=== PATIENT | female | born 1935 | race Caucasian/White ===

== ENCOUNTER 2018-09-01 20:57 | Observation (INO) | payer OTHER, BC ==
--- NOTE | 2018-09-01 21:16 | PDOC ---
Rapid Medical Evaluation Medical Evaluation: 09/01/18 21:14 This patient had a brief in-person evaluation in triage CC:fever, headache and sorethroat since Thursday recent migrant into the country 08/19/18 PE: NAD unlabored breathing heart s1s2 orders: antipyretic, rapid strep This patient will proceed to the ED for further evaluation 09/01/18 21:15 Discharge Disposition - Diagnosis Fever - Referrals - Patient Instructions - Post Discharge Activity
[2018-09-01 21:35] VITALS: BMI 25.0
--- NOTE | 2018-09-01 22:52 | PDOC ---
Documentation entered by Shanice Tipton SCRIBE, acting as scribe for Rosemary Richardson DO. Rosemary Richardson DO: This documentation has been prepared by the Danuta gonzalez Adrianna, SCRIBE, under my direction and personally reviewed by me in its entirety. I confirm that the documentation accurately reflects all work, treatment, procedures, and medical decision making performed by me. History of Present Illness - General Chief Complaint: Syncope/Near Syncope Stated Complaint: SYNCOPE Time Seen by Provider: 09/01/18 22:22 - History of Present Illness Initial Comments: The patient is an 83 year old female, with a significant PMH of HTN, hypothyroid , and glaucoma, who presents to the ED BIBA for evaluation of syncope. Patient notes she was at the diner, when she suddenly felt warm, tired, and strange. Patients son notes she became lethargic, began to slump over, and became unresponsive. He notes this episode lasted for 3-4 minutes, followed by patient returning to baseline. He denies any head contusion, shaking, or incontinence during the episode. She denies any lightheadedness, dizziness, chest pain, SOB, palpitations, headache, blurry vision, changes in vision, dysuria, nausea, vomit , diarrhea prior to the episode, or while in the ED. Allergies: Brimonidine, hydrochlorothiazide, epinephrine, lisinopril Surgical History: Right breast mass removal, appendectomy Social History: Denies EtOH, tobacco, or illicit drug use PCP: NOS Past History - Past Medical History Allergies/Adverse Reactions: Allergies Allergy/AdvReac Type Severity Reaction Status Date / Time brimonidine [From Alphagan P] Allergy Verified 09/01/18 23:12 hydrochlorothiazide Allergy Verified 09/01/18 23:12 epinephrine AdvReac Verified 09/01/18 23:12 lisinopril AdvReac Cough Verified 09/01/18 23:12 Home Medications: Ambulatory Orders Latanoprost 0.005% Eye Drops [Xalatan 0.005% Eye Drops -] 1 drop HS 09/01/18 Levothyroxine [Synthroid -] 50 mcg PO AM 09/01/18 Olmesartan Medoxomil [Benicar (Nf)] 20 mg PO AM 09/01/18 Timolol 0.5% [Timoptic 0.5%] 1 drop OD AM 09/01/18 - Suicide/Smoking/Psychosocial Hx Smoking History: Never smoked Have you smoked in the past 12 months: No Information on smoking cessation initiated: No Hx Alcohol Use: No Drug/Substance Use Hx: No Review of Systems - Review of Systems Comments:: GENERAL/CONSTITUTIONAL: +S/p syncope. +Warm prior to episode. +Lethargic prior to episode. No fever or chills. No weakness. HEAD, EYES, EARS, NOSE AND THROAT: No change in vision. No ear pain or discharge. No sore throat. GASTROINTESTINAL: No nausea, vomiting, diarrhea or constipation. GENITOURINARY: No dysuria, frequency, or change in urination. CARDIOVASCULAR: No chest pain or shortness of breath. RESPIRATORY: No cough, wheezing, or hemoptysis. MUSCULOSKELETAL: No joint or muscle swelling or pain. No neck or back pain. SKIN: No rash NEUROLOGIC: No headache, vertigo, loss of consciousness, or change in strength/ sensation. ENDOCRINE: No increased thirst. No abnormal weight change. HEMATOLOGIC/LYMPHATIC: No anemia, easy bleeding, or history of blood clots. ALLERGIC/IMMUNOLOGIC: No hives or skin allergy. *Physical Exam - Vital Signs Last Vital Signs Temp Pulse Resp BP Pulse Ox 98.1 F 78 20 170/81 98 09/01/18 21:25 09/01/18 22:35 09/01/18 22:35 09/01/18 22:35 09/01/18 22:35 - Physical Exam Comments: Constitutional: Awake, alert, oriented. No acute distress. Head: Normocephalic. Atraumatic Eyes: PERRL. EOMI. Conjunctivae are not pale. ENT: Mucous membranes are moist and intact. Posterior pharynx without exudates or erythema. Uvula midline. Neck: Supple. Full ROM. No lymphadenopathy. Cardiovascular: Regular rate. Regular rhythm. S1, S2 regular. Distal pulses are 2+ and symmetric. Pulmonary/Chest: No evidence of respiratory distress. Clear to auscultation bilaterally No wheezing, rales or rhonchi. Abdominal: Soft and nondistended. There is no tenderness. No rebound, guarding or rigidity. No organomegaly. No palpable masses. Good bowel sounds. Back: No CVA tenderness. Musculoskeletal: No edema. No cyanosis. No clubbing. Full range of motion in all extremities. No calf tenderness. Radial/pedal pulses are intact and 2+ bilaterally Skin: Skin is warm and dry. No petechiae. No purpura. Neurological: Alert and oriented to person, place, and time. Cranial nerves II -XII are grossly intact. Normal speech. Strength is grossly symmetric. No sensory deficits. Psychiatric: Good eye contact. Normal interaction, affect and behavior. Heart Score/ECG Review - ECG Intrepretation Comment:: 09/01/18 22:52 sinus at 69 with 1st degree av block, nl axis, nl interval, no acute st/t wave findings ED Treatment Course - LABORATORY CBC & Chemistry Diagram: 09/01/18 22:50 09/01/18 22:50 - ADDITIONAL ORDERS Additional order review: Laboratory Results 09/01/18 09/01/18 09/01/18 23:35 22:50 22:50 PT with INR 12.40 INR 1.05 PTT (Actin FS) Sodium Potassium Chloride Carbon Dioxide Anion Gap BUN Creatinine Est GFR (CKD-EPI)AfAm Est GFR (CKD-EPI)NonAf Random Glucose Calcium Magnesium 1.9 Total Bilirubin AST ALT Alkaline Phosphatase Creatine Kinase Troponin I Total Protein Albumin Urine Color Yellow Urine Appearance Clear Urine pH 6.5 Ur Specific [place] 1.018 Urine Protein Trace Urine Glucose (UA) Negative Urine Ketones Negative Urine Blood Negative Urine Nitrite Negative Urine Bilirubin Negative Urine Urobilinogen 1.0 Ur Leukocyte Esterase Negative 09/01/18 09/01/18 09/01/18 22:50 22:50 22:50 PT with INR INR PTT (Actin FS) 25.4 Sodium 138 Potassium 4.0 Chloride 106 Carbon Dioxide 26 Anion Gap 6 L BUN 18.6 H Creatinine 1.0 Est GFR (CKD-EPI)AfAm 59.91 Est GFR (CKD-EPI)NonAf 51.69 Random Glucose 162 H Calcium 8.6 Magnesium Total Bilirubin 0.3 AST 18 ALT 25 Alkaline Phosphatase 96 Creatine Kinase 82 Troponin I < 0.02 Total Protein 6.6 Albumin 3.5 Urine Color Urine Appearance Urine pH Ur Specific [place] Urine Protein Urine Glucose (UA) Urine Ketones Urine Blood Urine Nitrite Urine Bilirubin Urine Urobilinogen Ur Leukocyte Esterase 09/01/18 22:50 RBC 3.83 MCV 91.6 MCHC 34.9 RDW 13.9 MPV 8.0 Neutrophils % 76.1 Lymphocytes % 14.7 Monocytes % 7.8 Eosinophils % 0.9 Basophils % 0.5 - RADIOLOGY Radiology Studies Ordered: Category Date Time Status HEAD CT WITHOUT CONTRAST [CT] Stat CT Scan 09/01/18 22:42 Taken CHEST X-RAY PORTABLE* [RAD] Stat Radiology 09/01/18 22:42 Taken Radiograph Interpretation: EXAM: CT HEAD WITHOUT CONTRAST No acute brain parenchymal abnormality. No hemorrhage, mass or acute territorial infarct. Age-related involutional changes and chronic small vessel ischemic changes. No skull fracture. Clear visualized paranasal sinuses. Visualized mastoid air cells clear. Reported by: Wen Lux M.D. 09/02/2018 00:43 EST Medical Decision Making - Medical Decision Making 09/01/18 22:52 a/p: 83yo female with a witness syncopal episode while at dinner with her son -pt denies cp/sob/palpitations prior to syncope -had finished eating dinner -son witnessed episode -states she was unarousable but had just slumped over in the silver -no leg cramping, no pleuritic cp -no last, no paresthesias -no weakness -no vision changes -will send labs, ekg, cxr, head ct -will monitor on tele 09/01/18 23:41 labs reviewed neg trop 09/01/18 23:42 cxr clear 09/01/18 23:57 ua neg 09/02/18 01:10 ct head neg discussed labs and imaigng pt willing to stay for syncope workup microblog sent to [facility] for obs placement son at the bedside updated, patient updated 09/02/18 01:24 case discussed with [facility] who accepts pt to tele obs *DC/Admit/Observation/Transfer Diagnosis at time of Disposition: Syncope - Discharge Dispostion Condition at time of disposition: Fair Decision to Admit order: Yes Decision to Admit order Date/Time: Decision to Admit Order Category Date Time Status Decision to Admit to Hospital Routine Admission 09/02/18 01:12 Active - Referrals - Patient Instructions - Post Discharge Activity - Attestations Physician Attestion: 09/02/18 01:11 I, Dr. Rosemary Richardson, DO, attest that this document has been prepared under my direction and personally reviewed by me in its entirety. I further attest, that it accurately reflects all work, treatment, procedures and medical decision -making performed by me.
[2018-09-01 23:03] LABS: BASO % 0.5 % (0-2.0); EOS % 0.9 % (0-4.5); HEMATOCRIT 35.1 % (32.4-45.2); HEMOGLOBIN 12.3 GM/dL (10.7-15.3); LYMPH % 14.7 % (8-40); MCHC 34.9 g/dl (32.0-36.0); MEAN CELL VOLUME 91.6 fl (80-96); MONO % 7.8 % (3.8-10.2); NEUT % 76.1 % (42.8-82.8); PLATELET COUNT 213 K/MM3 (134-434); RBC 3.83 M/mm3 (3.60-5.2); RDW 13.9 % (11.6-15.6); WHITE BLOOD COUNT 7.8 K/mm3 (4.0-10.0)
[2018-09-01 23:38] LABS: INR 1.05 (0.83-1.09); PROTHROMBIN TIME (PATIENT) 12.4 SEC (9.7-13.0)
[2018-09-01 23:40] LABS: ALBUMIN 3.5 g/dl (3.4-5.0); BILIRUBIN,TOTAL 0.3 mg/dL (0.2-1); BLOOD UREA NITROGEN 18.6 mg/dL (7-18); CALCIUM 8.6 mg/dL (8.5-10.1); TOT PROT 6.6 g/dl (6.4-8.2)
[2018-09-01 23:53] LABS: PH,URINE 6.5 (5.0-8.0); URINE APPEARANCE CLEAR; URINE BILIRUBIN NEGATIVE (NEGATIVE); URINE COLOR YELLOW; URINE GLUCOSE (UA) NEGATIVE (NEGATIVE); URINE KETONE NEGATIVE (NEGATIVE); URINE LEUK ESTERASE NEGATIVE (NEGATIVE); URINE NITRITE NEGATIVE (NEGATIVE); URINE PROTEIN TRACE (NEGATIVE)
[2018-09-02] MEDS ORDERED: LATANOPROST 0.005% OPHTH SOLN 2.5ML BOTTLE OU ONE (01:25)
--- NOTE | 2018-09-02 01:29 | HP ---
CHIEF COMPLAINT: syncope PCP: none HISTORY OF PRESENT ILLNESS: Ms. Kaye is an 83yo female with HTN, hypothyroidism, and glaucoma who presents following a syncope episode. She reports being at dinner with her son and felt warmth and weakness and then lost consciousness. She did not have dizziness or tunnel vision prior to syncope. She remembers waking up on the floor of the restaurant. She reports that her son told her she was slumped over and was not responsive to physical or verbal stimuli for about 3-4 minutes. She felt normal following the episode. She reports having had a viral illness a couple months ago and fully recovered. She denies GILBERT, SOB, chest pain, nausea, or vomiting. She and her son were cleaning out her ex-'s apartment today prior to dinner. She reports having had a long day because she also drove from [place] prior to cleaning. She was seen by her principal java software engineer in June after a hypertensive episode and was told her checkup went well. ER course was notable for: CT head negative for acute processes Recent Travel: no PAST MEDICAL HISTORY: HTN hypothyroidism glaucoma PAST SURGICAL HISTORY: R breast mass removal, unsure of diagnosis appendectomy macular repair Social History: Smoking: no Alcohol: no Drugs: no Lives in [place]. 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 Family History: father passed from ID, had atherosclerosis Allergies brimonidine [From Alphagan P] Allergy (Verified 09/01/18 23:12) hydrochlorothiazide Allergy (Verified 09/01/18 23:12) epinephrine Adverse Reaction (Verified 09/01/18 23:12) lisinopril Adverse Reaction (Verified 09/01/18 23:12) Cough HOME MEDICATIONS: Home Medications Medication Instructions Recorded Latanoprost 0.005% Eye Drops 1 drop HS 09/01/18 [Xalatan 0.005% Eye Drops -] Levothyroxine [Synthroid -] 50 mcg PO AM 09/01/18 Olmesartan Medoxomil [Benicar (Nf)] 20 mg PO AM 09/01/18 Timolol 0.5% [Timoptic 0.5%] 1 drop OD AM 09/01/18 REVIEW OF SYSTEMS CONSTITUTIONAL: Absent: fever, chills, diaphoresis, generalized weakness HEENT: Absent: rhinorrhea, nasal congestion, throat pain, ear pain, visual changes CARDIOVASCULAR: Present: syncope Absent: chest pain, palpitations RESPIRATORY: Absent: cough, shortness of breath, dyspnea with exertion GASTROINTESTINAL: Absent: abdominal pain, nausea, vomiting GENITOURINARY: Absent: dysuria MUSCULOSKELETAL: Absent: myalgias SKIN: Absent: rash, itching, pallor HEMATOLOGIC/IMMUNOLOGIC: Absent: easy bleeding, easy bruising, lymphadenopathy, frequent infections ENDOCRINE: Absent: unexplained weight gain, unexplained weight loss, heat intolerance, cold intolerance NEUROLOGIC: Absent: headache, focal weakness or paresthesias, dizziness, unsteady gait, seizure, mental status changes, bladder or bowel incontinence PSYCHIATRIC: Absent: anxiety, depression, suicidal or homicidal ideation, hallucinations. PHYSICAL EXAMINATION Vital Signs - 24 hr 09/01/18 09/01/18 21:25 22:35 Temperature 98.1 F Pulse Rate 70 Pulse Rate [ 78 Apical] Respiratory 18 20 Rate Blood Pressure 157/83 Blood Pressure 170/81 [Left Arm] O2 Sat by Pulse 99 98 Oximetry (%) GENERAL: Awake, alert, and fully oriented, in no acute distress. HEAD: Normal with no signs of trauma. EYES: Pupils equal, round and reactive to light, extraocular movements intact, sclera anicteric, conjunctiva clear. No lid lag. EARS, NOSE, THROAT: Ears normal, nares patent. Moist mucous membranes. NECK: Normal range of motion, supple without lymphadenopathy, JVD, or masses. LUNGS: Breath sounds equal, clear to auscultation bilaterally. No wheezes, and no crackles. No accessory muscle use. HEART: Regular rate and rhythm, normal S1 and S2 without murmur, rub or gallop. ABDOMEN: Soft, nontender, not distended, normoactive bowel sounds, no guarding, no rebound, no masses. No hepatomegaly or splenomegaly. MUSCULOSKELETAL: Normal range of motion at all joints. No bony deformities or tenderness. UPPER EXTREMITIES: 2+ pulses, warm, well-perfused. No cyanosis. No clubbing. No peripheral edema. LOWER EXTREMITIES: 2+ pulses, warm, well-perfused. No calf tenderness. No peripheral edema. NEUROLOGICAL: Cranial nerves II-XII intact. Normal speech. +5 strength in all extremities PSYCHIATRIC: Cooperative. Good eye contact. Appropriate mood and affect. SKIN: Warm, dry, normal turgor, no rashes or lesions noted, normal capillary refill. Laboratory Results - last 24 hr 09/01/18 09/01/18 09/01/18 22:50 22:50 22:50 WBC 7.8 RBC 3.83 Hgb 12.3 Hct 35.1 MCV 91.6 MCH 32.0 MCHC 34.9 RDW 13.9 Plt Count 213 MPV 8.0 Absolute Neuts (auto) 6.0 Neutrophils % 76.1 Lymphocytes % 14.7 Monocytes % 7.8 Eosinophils % 0.9 Basophils % 0.5 Nucleated RBC % 0 PT with INR INR PTT (Actin FS) 25.4 Sodium Potassium Chloride Carbon Dioxide Anion Gap BUN Creatinine Est GFR (CKD-EPI)AfAm Est GFR (CKD-EPI)NonAf Random Glucose Calcium Magnesium Total Bilirubin AST ALT Alkaline Phosphatase Creatine Kinase 82 Troponin I < 0.02 Total Protein Albumin Urine Color Urine Appearance Urine pH Ur Specific [place] Urine Protein Urine Glucose (UA) Urine Ketones Urine Blood Urine Nitrite Urine Bilirubin Urine Urobilinogen Ur Leukocyte Esterase 09/01/18 09/01/18 09/01/18 22:50 22:50 22:50 WBC RBC Hgb Hct MCV MCH MCHC RDW Plt Count MPV Absolute Neuts (auto) Neutrophils % Lymphocytes % Monocytes % Eosinophils % Basophils % Nucleated RBC % PT with INR 12.40 INR 1.05 PTT (Actin FS) Sodium 138 Potassium 4.0 Chloride 106 Carbon Dioxide 26 Anion Gap 6 L BUN 18.6 H Creatinine 1.0 Est GFR (CKD-EPI)AfAm 59.91 Est GFR (CKD-EPI)NonAf 51.69 Random Glucose 162 H Calcium 8.6 Magnesium 1.9 Total Bilirubin 0.3 AST 18 ALT 25 Alkaline Phosphatase 96 Creatine Kinase Troponin I Total Protein 6.6 Albumin 3.5 Urine Color Urine Appearance Urine pH Ur Specific [place] Urine Protein Urine Glucose (UA) Urine Ketones Urine Blood Urine Nitrite Urine Bilirubin Urine Urobilinogen Ur Leukocyte Esterase 09/01/18 23:35 WBC RBC Hgb Hct MCV MCH MCHC RDW Plt Count MPV Absolute Neuts (auto) Neutrophils % Lymphocytes % Monocytes % Eosinophils % Basophils % Nucleated RBC % PT with INR INR PTT (Actin FS) Sodium Potassium Chloride Carbon Dioxide Anion Gap BUN Creatinine Est GFR (CKD-EPI)AfAm Est GFR (CKD-EPI)NonAf Random Glucose Calcium Magnesium Total Bilirubin AST ALT Alkaline Phosphatase Creatine Kinase Troponin I Total Protein Albumin Urine Color Yellow Urine Appearance Clear Urine pH 6.5 Ur Specific [place] 1.018 Urine Protein Trace Urine Glucose (UA) Negative Urine Ketones Negative Urine Blood Negative Urine Nitrite Negative Urine Bilirubin Negative Urine Urobilinogen 1.0 Ur Leukocyte Esterase Negative ASSESSMENT/PLAN: The pt is an 83yo female with history of HTN, hypothyroidism, and glaucoma who presents after syncope. Her symptoms resolved quickly after she regained consciousness. 1. syncope- She has no prior hx of neuro conditions. Pt had CN2-12 intact, sensory and motor functions intact, and is A/O x 3. CT head was negative for acute hemorrhage or ischemia. Pt was not hypotensive (170/81), orthostatics were negative per ED, and is afebrile. UA is negative. She reports having to pack her ex-'s place who recently . She has a family hx of atherosclerosis, and she has not had a carotid doppler. She was eating prior to syncope. This could possibly be post-prandial syncope vs ischemic changes given family hx. Less likely is infection. -monitor BP -carotid doppler -echo -tele -CBC -CMP -TSH -lipid panel -PT consult 2. HTN- She said she had an episode in June where her BP was extremely high in an ED and was given IV meds to control. She saw her principal java software engineer afterward and was deemed ok. At admission, systolic was elevated (170/81). -start losartan -monitor BP 3. hypothyroidism- Thyroid disorders could cause syncope. -check TSH -continue home synthroid 4. hyperglycemia- BG at admission 162. No history or family hx of DM. She denies urinary frequency. It is possible she could have DM given her age and co- morbid conditions. -check HbA1C -CMP to monitor BG DVT Ppe Lovenox 40mg Q daily FEN PO fluids monitor electrolytes sodium restriction diet Visit type - Emergency Visit Emergency Visit: Yes ED Registration Date: 09/02/18 Care time: The patient presented to the Emergency Department on the above date and was hospitalized for further evaluation of their emergent condition. - New Patient This patient is new to me today: Yes Date on this admission: 09/02/18 - Critical Care Critical Care patient: No ATTENDING PHYSICIAN STATEMENT I saw and evaluated the patient. I reviewed the resident's note and discussed the case with the resident. I agree with the resident's findings and plan as documented. SUBJECTIVE: OBJECTIVE: ASSESSMENT AND PLAN:
--- NOTE | 2018-09-02 02:11 | PN ---
Teaching Attending Note Name of Resident: Lillie Cantu ATTENDING PHYSICIAN STATEMENT I saw and evaluated the patient. I reviewed the resident's note and discussed the case with the resident. I agree with the resident's findings and plan as documented. Patient presents to the ER with a CC of Syncope during a meal; did have witnessed LOC without seizure activity or fall; did not hit head. Never happened before. She had negative orthostatics in the ER. Does have some recent emotional stressors and was working hard moving boxes all day. The [place]. Negative orthostatics, VS, labs, imaging reviewed NAD, AAOx3, resting in bed NC AT EOMI PERRLA RRR s1/2 no mgr Lungs CTAB, w/ sym exp EKG reviewed Telemetry ordered Echo pending ASSESSMENT AND PLAN: Patient presents with syncope; she is noted to have negative orthostatic VS. DDx includes post prandial vs. hypotension; no neuro sx. No apparent arrhythmias # Syncope # HTN # Acute Stress Will check echo, recheck orthostatics. given history of HTN and unknown lipid profile can check carotid dopplers as not unreasonable to assume could have some vascular disease. Monitor for recurrance. Fall precautions. Full Code
[2018-09-02 05:59] LABS: BASO % 0.6 % (0-2.0); EOS % 0.8 % (0-4.5); HEMATOCRIT 34.1 % (32.4-45.2); HEMOGLOBIN 11.7 GM/dL (10.7-15.3); LYMPH % 22.4 % (8-40); MCH 31.7 pg (25.7-33.7); MCHC 34.4 g/dl (32.0-36.0); MEAN CELL VOLUME 92.2 fl (80-96); MEAN PLT VOLUME 8.2 fl (7.5-11.1); MONO % 7.5 % (3.8-10.2); NEUT % 68.7 % (42.8-82.8); PLATELET COUNT 204 K/MM3 (134-434); RBC 3.69 M/mm3 (3.60-5.2); WHITE BLOOD COUNT 5.4 K/mm3 (4.0-10.0)
[2018-09-02 06:29] LABS: CHOLESTEROL 188 mg/dL (50-200); HDL CHOLESTEROL 88 mg/dL (40-60); TRIGLYCERIDES 42 mg/dL (0-150)
[2018-09-02 06:37] LABS: ALBUMIN 3.2 g/dl (3.4-5.0); BILIRUBIN,TOTAL 0.3 mg/dL (0.2-1); BLOOD UREA NITROGEN 19.6 mg/dL (7-18); CALCIUM 8.5 mg/dL (8.5-10.1); CREATININE 0.7 mg/dL (0.55-1.3); MAGNESIUM 1.9 mg/dL (1.8-2.4); POTASSIUM 4.2 mmol/L (3.5-5.1); TOT PROT 5.8 g/dl (6.4-8.2)
[2018-09-02] MEDS ORDERED: TIMOLOL 0.5% OPHTHALMIC SOL 5 ML BOTTLE OD SCH (07:00)
[2018-09-02] MEDS ORDERED: LOSARTAN POTASSIUM 100 MG TABLET PO SCH (07:00)
[2018-09-02] MEDS ORDERED: LOSARTAN POTASSIUM 50 MG TABLET (FP) PO SCH ×2 (07:00→07:46)
[2018-09-02] MEDS ORDERED: PATIENT'S OWN MEDICATION (NON-FORMULARY) (Olmesartan Medoxomil 20 MG) PO SCH (07:00)
[2018-09-02] MEDS ORDERED: LOSARTAN POTASSIUM 50 MG TABLET (FP) ONE (07:26)
[2018-09-02] MEDS ORDERED: ENOXAPARIN NA (PORCINE) 40 MG/0.4 ML DISP.SYRIN SQ SCH (10:00)
--- NOTE | 2018-09-02 14:07 | ECHO ---
Name: LUIS CARLOS HAYES Exam:Adult Echocardiogram Study Date: 09/02/2018 08:52 AM Age: 83 yrs Reason For Study: SYNCOPE Height: 63 in Weight: 141 lb BSA: 1.7 m2 MMode/2D Measurements & Calculations IVSd: 0.77 cm Ao root diam: 2.6 cm LVIDd: 4.5 cm LA dimension: 3.4 cm LVIDs: 3.0 cm LVPWd: 0.68 cm EDV(Teich): 92.2 ml LVOT diam: 2.0 cm ESV(Teich): 33.9 ml Doppler Measurements & Calculations MV E max luciano: 65.6 cm/sec Ao V2 max: 152.0 cm/sec MV A max luciano: 94.8 cm/sec Ao max P.2 mmHg MV E/A: 0.69 Ao V2 mean: 104.3 cm/sec MV dec time: 0.33 sec Ao mean P.9 mmHg Ao V2 VTI: 35.6 cm CAROL(I,D): 1.8 cm2 AI P1/2t: 526.0 msec CAROL(V,D): 1.8 cm2 AI max luciano: 510.4 cm/sec LV V1 max P.2 mmHg AI max P.2 mmHg LV V1 mean P.8 mmHg AI dec slope: 284.2 cm/sec2 LV V1 max: 89.8 cm/sec LV V1 mean: 63.0 cm/sec LV V1 VTI: 21.7 cm MR max luciano: 270.1 cm/sec SV(LVOT): 65.6 ml MR max P.2 mmHg TR max luciano: 193.3 cm/sec Med Peak E' Luciano: 5.0 cm/sec TR max P.6 mmHg Med E/e': 13.2 Lat Peak E' Luciano: 6.4 cm/sec Lat E/e': 10.3 Procedure A complete two-dimensional transthoracic echocardiogram was performed (2D, M-mode, Doppler and color flow Doppler). Left Ventricle The left ventricular size, thickness and function are normal. The left ventricular ejection fraction is normal. Ejection Fraction = 60-65%. The left ventricular wall motion is normal. Right Ventricle The right ventricle is normal in size and function. Atria Normal left and right atrial size and function. Mitral Valve There is trace mitral regurgitation. Tricuspid Valve There is trace tricuspid regurgitation. Right ventricular systolic pressure is normal. Aortic Valve The aortic valve is trileaflet. No hemodynamically significant valvular aortic stenosis. Mild aortic regurgitation. Pulmonic Valve There is no pulmonic valvular regurgitation. Great Vessels The aortic root is normal size. Pericardium/Pleura There is no pericardial effusion. Interpretation Summary The left ventricular size, thickness and function are normal The right ventricle is normal in size and function. There is trace mitral regurgitation. There is trace tricuspid regurgitation. Mild aortic regurgitation. MD Ralph Ramachandran 09/02/2018 02:07 PM
--- NOTE | 2018-09-02 14:38 | EKG ---
Test Reason : Blood Pressure : / mmHG Vent. Rate : 069 BPM Atrial Rate : 069 BPM P-R Int : 236 ms QRS Dur : 100 ms QT Int : 404 ms P-R-T Axes : 083 000 041 degrees QTc Int : 432 ms SINUS RHYTHM WITH 1ST DEGREE A-V BLOCK OTHERWISE NORMAL ECG NO PREVIOUS ECGS AVAILABLE Confirmed by LELA LOPEZ, BEVERLY ([id number]) on 09/02/2018 2:37:49 PM Referred By: Confirmed By:BEVERLY VOGEL MD
--- NOTE | 2018-09-02 15:45 | PN ---
Teaching Attending Note Name of Resident: Hilda Goff ATTENDING PHYSICIAN STATEMENT I saw and evaluated the patient. I reviewed the resident's note and discussed the case with the resident. I agree with the resident's findings and plan as documented. SUBJECTIVE:asymptomatic. states she has not had these symptoms in the past. admits to not eating all day prior to the event. is closely monitored under her brim molder and goes for routine testing. son reports EMS checked her sugar and was low but does not recall level. denies Cp, SOB, fever, chills, N/V/C/D no medication changes and claims compliance OBJECTIVE: Last Vital Signs Temp Pulse Resp BP Pulse Ox 98.1 F 70 16 159/81 100 09/02/18 07:00 09/02/18 07:00 09/02/18 07:00 09/02/18 07:00 09/02/18 07:00 General NAD HEENT no nystagmus, no carotid bruti CV S1 S2 RRR no murmur/rub/gallop lungs CTA B/l no wheezing/rales/rhonchi ASSESSMENT AND PLAN: 83yo F with PMH HTN and hypothyroid presented after syncopal episode at home 1. Syncope- likely due to HTN vs hypoglycemia. currently asymptoamtic. echo reviewed. awaiting carotid ultrasound. trop negative. orthostatics negative 2. HTN- uncontrolled and above goal. discussed with patient risks of uncontrolled HTN and need to lower it to goal. states SBP always in 150's and her brim molder aware. refuses to try a secondary agent to lower BP. says she will d/w her brim molder next week 3. Hypothyroid- TSH WNL. cont LT4 4. DVT ppx- EAM 5. spoke with son present at bedside. can d/c home pending results of carotid doppler
[2018-09-02 17:20] VITALS: BP 177/83; PULSE 69; TEMP 98.6
[2018-09-02] MEDS ORDERED: LATANOPROST 0.005% OPHTH SOLN 2.5ML BOTTLE OS SCH (22:00)
[2018-09-03] MEDS ORDERED: LEVOTHYROXINE NA 50 MCG TABLET (FP) PO SCH (07:00)
--- NOTE | 2018-09-03 17:01 | DS ---
Physical Exam: SUBJECTIVE: Patient seen and examined. In no acute distress. Denies dizziness, CP, SOB, N/V/D, chills, fevers. OBJECTIVE: Vital Signs Period Temp Pulse Resp BP Sys/Gallagher Pulse Ox Last 24 Hr 98.6 F 69 16 177/83 98 PHYSICAL EXAM GENERAL: The patient is awake, alert, and fully oriented, in no acute distress. LUNGS: Breath sounds equal, clear to auscultation bilaterally, no wheezes, no crackles, no accessory muscle use. HEART: Regular rate and rhythm, S1, S2 without murmur, rub or gallop. No JVD, no bruits. ABDOMEN: Soft, nontender, nondistended, normoactive bowel sounds, no guarding, no rebound, no hepatosplenomegaly, no masses SKIN: Warm, dry, normal turgor, no rashes or lesions noted. LABS Laboratory Last Values WBC 5.4 K/mm3 (4.0-10.0) 09/02/18 05:20 RBC 3.69 M/mm3 (3.60-5.2) 09/02/18 05:20 Hgb 11.7 GM/dL (10.7-15.3) 09/02/18 05:20 Hct 34.1 % (32.4-45.2) 09/02/18 05:20 MCV 92.2 fl (80-96) 09/02/18 05:20 MCH 31.7 pg (25.7-33.7) 09/02/18 05:20 MCHC 34.4 g/dl (32.0-36.0) 09/02/18 05:20 RDW 14.0 % (11.6-15.6) 09/02/18 05:20 Plt Count 204 K/MM3 (134-434) 09/02/18 05:20 MPV 8.2 fl (7.5-11.1) 09/02/18 05:20 Absolute Neuts (auto) 3.7 K/mm3 (1.5-8.0) 09/02/18 05:20 Neutrophils % 68.7 % (42.8-82.8) 09/02/18 05:20 Lymphocytes % 22.4 % (8-40) D 09/02/18 05:20 Monocytes % 7.5 % (3.8-10.2) 09/02/18 05:20 Eosinophils % 0.8 % (0-4.5) 09/02/18 05:20 Basophils % 0.6 % (0-2.0) 09/02/18 05:20 Nucleated RBC % 0 % (0-0) 09/02/18 05:20 PT with INR 12.40 SEC (9.7-13.0) 09/01/18 22:50 INR 1.05 (0.83-1.09) 09/01/18 22:50 PTT (Actin FS) 25.4 SECONDS (25.2-36.5) 09/01/18 22:50 Sodium 139 mmol/L (136-145) 09/02/18 05:20 Potassium 4.2 mmol/L (3.5-5.1) 09/02/18 05:20 Chloride 106 mmol/L (98-107) 09/02/18 05:20 Carbon Dioxide 26 mmol/L (21-32) 09/02/18 05:20 Anion Gap 6 MMOL/L (8-16) L 09/02/18 05:20 BUN 19.6 mg/dL (7-18) H 09/02/18 05:20 Creatinine 0.7 mg/dL (0.55-1.3) 09/02/18 05:20 Est GFR (CKD-EPI)AfAm 92.21 09/02/18 05:20 Est GFR (CKD-EPI)NonAf 79.56 09/02/18 05:20 Random Glucose 102 mg/dL (74-106) 09/02/18 05:20 Hemoglobin A1c % 5.3 % (4.2-6.3) 09/02/18 05:20 Calcium 8.5 mg/dL (8.5-10.1) 09/02/18 05:20 Magnesium 1.9 mg/dL (1.8-2.4) 09/02/18 05:20 Total Bilirubin 0.3 mg/dL (0.2-1) 09/02/18 05:20 AST 15 U/L (15-37) 09/02/18 05:20 ALT 23 U/L (13-61) 09/02/18 05:20 Alkaline Phosphatase 80 U/L (45-117) 09/02/18 05:20 Creatine Kinase 82 U/L (26-192) 09/01/18 22:50 Troponin I < 0.02 ng/ml (0.00-0.05) 09/01/18 22:50 Total Protein 5.8 g/dl (6.4-8.2) L 09/02/18 05:20 Albumin 3.2 g/dl (3.4-5.0) L 09/02/18 05:20 Triglycerides 42 mg/dL (0-150) 09/02/18 05:20 Cholesterol 188 mg/dL (50-200) 09/02/18 05:20 Total LDL Cholesterol 90 mg/dL (5-100) 09/02/18 05:20 HDL Cholesterol 88 mg/dL (40-60) H 09/02/18 05:20 TSH 2.24 uIU/ml (0.358-3.74) 09/02/18 05:20 Urine Color Yellow 09/01/18 23:35 Urine Appearance Clear 09/01/18 23:35 Urine pH 6.5 (5.0-8.0) 09/01/18 23:35 Ur Specific [place] 1.018 (1.010-1.035) 09/01/18 23:35 Urine Protein Trace (NEGATIVE) 09/01/18 23:35 Urine Glucose (UA) Negative (NEGATIVE) 09/01/18 23:35 Urine Ketones Negative (NEGATIVE) 09/01/18 23:35 Urine Blood Negative (NEGATIVE) 09/01/18 23:35 Urine Nitrite Negative (NEGATIVE) 09/01/18 23:35 Urine Bilirubin Negative (NEGATIVE) 09/01/18 23:35 Urine Urobilinogen 1.0 mg/dL (0.2-1.0) 09/01/18 23:35 Ur Leukocyte Esterase Negative (NEGATIVE) 09/01/18 23:35 HOSPITAL COURSE: 83 y.o. F [facility] HTN, hypothyroidism, glaucoma, Lyme disease who presented after a syncopal episode. Neg for orthostatics, head CT, and carotid dopplers. EKG showed 1st degree AV block. Vitals significant for hypertensive episode to 193/ 94 which has since improved to 170s systolic; pt is on Olmesartan and follows up with her elevator mechanic in [facility] where she lives. Pt given Losartan during this visit. It was suggested to add a second hypertensive agent to pt's regimen, which she declined. [place] home BP is usually in 150s systolic she would prefer to speak to her home elevator mechanic regarding further treatment options. Pt is currently clinically stable. Date of Admission:09/02/18 CXR: Negative Head CT: Negative Carotid Doppler: No stenosis EKst degree AV block Echo: Trace MR, trace TR, Mild AR Date of Discharge: 09/03/18 Minutes to complete discharge: 36 Discharge Summary Reason For Visit: SYNCOPE Condition: Stable - Instructions Diet, Activity, Other Instructions: Your visit: You presented to the hospital for a syncopal episode and high blood pressure. You were treated with medications. Follow up with the following physicians: 1. Primary care provider in 1 week. 2. Follow up with your elevator mechanic in 1 week. Further intructions: You are being discharged to your home. Your blood pressure remains above goal. We suggested a second agent, however you wanted to discuss this further with your elevator mechanic. Please follow up regarding your blood pressure. Please continue to eat a low salt diet. Please return to the ER if you have any signs or symptoms of syncope, chest pain , shortness of breath, palpitations, confusion, dizziness, abdominal pain, fevers, fatigue, vomiting, diarrhea, muscle pains or weakness. Please return to the ER if symptoms persist, worsen, or new symptoms arise. Disposition: HOME - Home Medications Comprehensive Discharge Medication List: Ambulatory Orders Latanoprost 0.005% Eye Drops [Xalatan 0.005% Eye Drops -] 1 drop HS 09/01/18 Levothyroxine [Synthroid -] 50 mcg PO AM 09/01/18 Olmesartan Medoxomil [Benicar -] 20 mg PO AM 09/01/18 Timolol 0.5% [Timoptic 0.5%] 1 drop OD AM 09/01/18 This patient is new to me today: No Emergency Visit: Yes ED Registration Date: 09/02/18 Care time: The patient presented to the Emergency Department on the above date and was hospitalized for further evaluation of their emergent condition. Critical Care patient: No - Discharge Referral Referred to [facility] Med P.C.: No ATTENDING PHYSICIAN STATEMENT I saw and evaluated the patient. I reviewed the resident's note and discussed the case with the resident. I agree with the resident's findings and plan as documented. SUBJECTIVE: OBJECTIVE: ASSESSMENT AND PLAN:
== END 2018-09-02 17:20 | disposition home or self-care (01) ==
LOC: JER 20:57 → JERBED 09-02 01:12
PROVIDERS: ADMIT Internal Medicine; ATTEND Internal Medicine
DX: R55 Syncope and collapse (principal); I10 Essential (primary) hypertension; E03.9 Hypothyroidism, unspecified; H40.9 Unspecified glaucoma; R73.9 Hyperglycemia, unspecified; F43.9 Reaction to severe stress, unspecified
CPT/HCPCS: 36415; 70450-TC; 71045-TC-FY; 80053; 80061; 81003; 82550; 83036; 83721; 83735; 84443; 84484; 85025; 85610; 85730; 93005; 93010; 93306-TC; 93880-TC; 99284-25; G0378